=== PATIENT | male | born 1980 | race Caucasian/White ===

== ENCOUNTER → 2017-08-18 14:32 | Outpatient (CLI) | payer OTHER | END | disposition home or self-care (01) | LOC: D.MRI 08-13 14:00 | DX: G40.909 Epilepsy, unspecified, not intractable, without status epilepticus (principal) ==

== ENCOUNTER → 2017-08-27 12:57 | Outpatient (CLI) | payer OTHER | END | disposition home or self-care (01) | LOC: D.RAD 08-19 08:45 → D.MRI 08-19 09:00 → D.RAD 12:57 | DX: G40.909 Epilepsy, unspecified, not intractable, without status epilepticus (principal); Z87.820 Personal history of traumatic brain injury ==

== ENCOUNTER 2017-09-15 14:46 | Emergency (ER) | payer OTHER ==
[2017-09-15 16:39] LABS: APPEARANCE CLEAR (CLEAR); BASOPHILS 0.3 % (0-2); BILIRUBIN NEGATIVE (NEGATIVE); COLOR DK YELLOW (YELLOW); EOSINOPHILS 3.2 % (0-7); GLUCOSE NEGATIVE (NEGATIVE); HEMATOCRIT 42.9 % (42.0-54.0); HEMOGLOBIN 14.3 g/dL (13.5-17.5); IMMATURE GRANULOCYTES 0.2 % (0-5); KETONE NEGATIVE (NEGATIVE); LYMPHOCYTES 30.2 % (15-50); MCH 30.4 pg (26.0-34.0); MCHC 33.3 g/dL (31.0-37.0); MCV 91.1 fL (80.0-100.0); MEAN PLATELET VOLUME 9.6 fL (7.4-10.4); MONOCYTES 5.7 % (2-11); NEUTROPHILS 60.4 % (40-80); NITRITE NEGATIVE (NEGATIVE); PLATELET COUNT 249 10x3/uL (130-400); PROTEIN NEGATIVE (NEGATIVE); RBC 4.71 10x6/uL (4.20-6.10); RDW 13.3 % (11.5-14.5); SPECIFIC GRAVITY 1.015 (1.005-1.020); UROBILINOGEN NORMAL (NORMAL); WBC 10.4 10x3/uL (4.8-10.8)
[2017-09-15 16:49] LABS: ANION GAP 12.8 mmol/L (8-16); BILIRUBIN - TOTAL 0.2 mg/dL (0.2-1.3); CALCIUM 9.3 mg/dL (8.5-10.1); CARBON DIOXIDE 28.9 mmol/L (21.0-32.0); CREATININE - SERUM 1.2 mg/dL (0.6-1.3); POTASSIUM - SERUM 3.7 mmol/L (3.5-5.1); PROTEIN - SERUM 7.4 g/dL (6.4-8.2)
== END 2017-09-15 17:34 | disposition home or self-care (01) ==
LOC: D.ER 14:46
PROVIDERS: Emergency Medicine; Nurse Practitioner Family
DX: Z00.01 Encounter for general adult medical examination with abnormal findings (principal)

== ENCOUNTER 2018-03-09 16:57 | Emergency (ER) | payer OTHER | END 2018-03-09 20:22 | disposition home or self-care (01) | LOC: D.ER 16:57 | DX: J06.9 Acute upper respiratory infection, unspecified (principal); B34.9 Viral infection, unspecified; F17.200 Nicotine dependence, unspecified, uncomplicated ==

== ENCOUNTER 2018-05-23 14:04 | Emergency (ER) | payer OTHER ==
[~2018-05-23] VITALS: Ht 180.3 cm; Wt 72.7 kg
[2018-05-23 14:27] VITALS: Ht 180.3 cm; Wt 72.7 kg
[2018-05-23] MEDS ORDERED: VOLTAREN75 MG PO (16:07)
[2018-05-23 16:09] VITALS: BP 138/76
== END 2018-05-23 16:11 | disposition home or self-care (01) ==
LOC: D.ER 14:04
DX: S69.91XA Unspecified injury of right wrist, hand and finger(s), initial encounter (principal); X58.XXXA Exposure to other specified factors, initial encounter; Y93.9 Activity, unspecified; Y92.9 Unspecified place or not applicable; F17.200 Nicotine dependence, unspecified, uncomplicated

== ENCOUNTER → 2018-09-16 14:21 | Outpatient (CLI) | payer OTHER ==
[2018-05-23 14:27] VITALS: BMI 22.3
[~2018-09-16 14:21] MED LIST: VOLTAREN75 MG PO
== END | disposition home or self-care (01) ==
LOC: D.CT 14:21
DX: R51 Headache (principal)

== ENCOUNTER 2019-04-21 12:52 | Emergency (ER) | payer OTHER ==
[~2019-04-21] VITALS: Ht 180.3 cm; Wt 70.5 kg
[2019-04-21 12:55] VITALS: Ht 180.3 cm; Wt 70.5 kg
[2019-04-21 13:43] LABS: ALBUMIN 3.7 g/dL (3.4-5.0); ALKALINE PHOSPHATASE 115 U/L (46-116); ALT (SGPT) 23 U/L (10-68); BASOPHILS 0.6 % (0-2); BILIRUBIN - TOTAL 0.28 mg/dL (0.2-1.3); CALC OSMOLALITY 281 mosm/kg (275-300); CALCIUM 8.7 mg/dL (8.5-10.1); CARBON DIOXIDE 26.2 mmol/L (21.0-32.0); CHLORIDE - SERUM 106 mmol/L (98-107); CREATININE - SERUM 0.8 mg/dL (0.6-1.3); EOSINOPHILS 3.2 % (0-7); GLUCOSE 89 mg/dL (74-106); HEMATOCRIT 40.1 % (42.0-54.0); HEMOGLOBIN 13.7 g/dL (13.5-17.5); IMMATURE GRANULOCYTES 0.3 % (0-5); LYMPHOCYTES 30.8 % (15-50); MCHC 34.2 g/dL (31.0-37.0); MCV 87.7 fL (80.0-100.0); MEAN PLATELET VOLUME 9.3 fL (7.4-10.4); MONOCYTES 6.9 % (2-11); NEUTROPHILS 58.2 % (40-80); PLATELET COUNT 280 10x3/uL (130-400); POTASSIUM - SERUM 3.8 mmol/L (3.5-5.1); PROTEIN - SERUM 7.2 g/dL (6.4-8.2); RBC 4.57 10x6/uL (4.20-6.10); RDW 13.8 % (11.5-14.5); SODIUM 142 mmol/L (136-145); UREA NITROGEN 13 mg/dL (7-18); WBC 7.1 10x3/uL (4.8-10.8); eGFR NON AFRICAN AMERICAN > 90 mL/min (90-120)
[2019-04-21] MEDS ORDERED: STERAPRED DS 1210 MG PO (14:47)
[2019-04-21 14:55] VITALS: BP 122/64
== END 2019-04-21 14:56 | disposition home or self-care (01) ==
LOC: D.ER 12:52
PROVIDERS: Family Medicine
DX: G51.0 Bell's palsy (principal)